=== PATIENT | male | born 1955 | race Caucasian/White ===

== ENCOUNTER 2024-07-08 12:57 | Day surgery (SDC) | payer MEDICARE, MEDICAID ==
[2024-06-29 10:42] LABS: BASOPHILS # (AUTO) 0.1 X10'3 (0-0.2); BASOPHILS % (AUTO) 1.2 % (0-1); EOSINOPHILS # (AUTO) 0.3 X10'3 (0-0.9); EOSINOPHILS % (AUTO) 3.2 % (0-6); LYMPHOCYTES # (AUTO) 1.3 X10'3 (1.1-4.8); LYMPHOCYTES % (AUTO) 16.8 % (21-51); MEAN CORPUSCULAR HEMOGLOBIN 22.7 PG (27.0-31.0); MEAN CORPUSCULAR HGB CONC 31.9 g/dL (33.0-36.5); MEAN CORPUSCULAR VOLUME 71.1 FL (78-98); MEAN PLATELET VOLUME 6.6 FL (7.4-10.4); MONOCYTES # (AUTO) 0.8 X10'3 (0-0.9); MONOCYTES % (AUTO) 10.6 % (2-12); NEUTROPHILS # (AUTO) 5.4 X10'3 (1.8-7.7); NEUTROPHILS % (AUTO) 68.2 % (42-75); PRE OP HEMATOCRIT 35.2 % (42.0-52.0); PRE OP HEMOGLOBIN 11.2 g/dL (14.0-17.9); PRE OP PLATELET COUNT 335 X10'3 (140-440); PRE OP WHITE BLOOD COUNT 7.9 10'3 (4.8-10.8); RED BLOOD COUNT 4.95 X10'6 (4.70-6.10); RED CELL DISTRIBUTION WIDTH 17.6 % (11.5-14.5)
[2024-06-29 10:57] LABS: ALBUMIN 3.4 G/DL (3.4-5.0); ALKALINE PHOSPHATASE 95 IU/L (46-116); BLOOD UREA NITROGEN 20 MG/DL (7-18); BUN/CREATININE RATIO 16.8 (10.0-20.0); CALCIUM 8.3 MG/DL (8.5-10.1); CHLORIDE 107 MMOL/L (99-107); CREATININE 1.19 MG/DL (0.60-1.10); PRE OP ALT 19 U/L (30-65); PRE OP ANION GAP 6 (8-16); PRE OP AST 13 U/L (10-37); PRE OP BILIRUB, TOTAL 0.3 MG/DL (0.0-1.0); PRE OP GLUCOSE 109 MG/DL (70-104); PRE OP POTASSIUM 4.2 MMOL/L (3.4-5.1); PRE OP SODIUM 142 MMOL/L (135-145); TOTAL CARBON DIOXIDE 29.4 MMOL/L (24-32); TOTAL PROTEIN 6.8 G/DL (6.4-8.2); eGFR 61 ML/MIN
[~2024-07-08] VITALS: Ht 175.3 cm; Wt 87.5 kg
[2024-07-08] VITALS (13 sets, daily range): BP systolic 90–134; BP diastolic 51–81; PULSE 77–104; RESP 10–16; TEMP 97.4; O2SAT 93–98
[2024-07-08] MEDS: ceFAZolin 2gm in dextrose, iso 50 ML IV ONE (05:30)
[~2024-07-08 12:57] MED LIST: AMLO-379 PO; DOCUMENT DATE & TIME OF BETA-BLOCKER PO ONE; METO-395 PO; OMEP20CA4 PO; TAMS-55 PO
[2024-07-08] MEDS: famotidine 20mg tablet PO ONE (13:29)
[2024-07-08] MEDS: ringers solution, lacted 1,000 ML IV SCH (13:29)
--- NOTE | 2024-07-08 13:34 | ELECTROCARDIOGRAPH REPORT ---
[facility] Test Date: 2024-07-08 Test Time: 13:30:42 Pat Name: ES SARGENT Department: [facility] Patient ID: [id number] Room: Gender: M Link Cutter: ANABEL : 1955 Requested By: EDIE AHRE Order Number: [id number] Reading MD: Dr. PABLITO Brewer Measurements Intervals [place] Rate: 91 P: 37 AK: 151 QRS: 13 QRSD: 108 T: 56 QT: 376 QTc: 463 Interpretive Statements Sinus rhythm Atrial premature complex RSR' in V1 or V2, right VCD or RVH Electronically Signed On 07-11-2024 15:05:[address] PABLITO Brewer Please click the below link to view image of tracing.
[2024-07-08] MEDS ORDERED: morphine 4 MG/ML inj SYRINge IV PRN (14:25)
[2024-07-08] MEDS ORDERED: ringers solution, lacted 1,000 ML IV SCH (14:25)
[2024-07-08] MEDS ORDERED: morphine 2 MG/ML inj. syringe IV PRN (14:25)
[2024-07-08] MEDS ORDERED: hydrALAZINE 20mg/ml inj. IV PRN (14:25)
[2024-07-08] MEDS ORDERED: HYDROmorphone/PF 0.2 MG/ML SYRINGE IV PRN ×2 (14:25)
[2024-07-08] MEDS ORDERED: labetalol 20mg/4ml (5mg/ml) syringe IV PRN (14:25)
[2024-07-08] MEDS ORDERED: propofol inj 20 ML IV ONE (14:29)
[2024-07-08] MEDS ORDERED: midazolam 1 mg/ML 2ml injection ONE (14:29)
[2024-07-08] MEDS ORDERED: sevoflurane 250ml liquid IH ONE (14:29)
[2024-07-08] MEDS ORDERED: fentaNYL/PF 50MCG/1 ML 2ML syringe ONE (14:29)
[2024-07-08] MEDS ORDERED: dexamethasone sod phosphate 4mg/ml inj. ONE (14:45)
[2024-07-08] MEDS ORDERED: ondansetron/PF 4mg/2ml inj ONE (15:18)
--- NOTE | 2024-07-08 15:23 | OPERATIVE REPORT ---
Operative Report Providers to ~ Date of Procedure: July 08, 2024 Pre-Operative Diagnosis: Benign prostatic hypertrophy, bladder diverticula, urinary retention Post-Operative Diagnosis SAME as PRE-Op Procedure Performed Trans urethral resection of the prostate, bladder diverticula fulguration. Surgeon: Alin Hare MD Engraver Signature None. Anesthesiologist: Gabriel Villanueva Type of Anesthesia: General Findings: Endoscopic findings: The patient demonstrated enlarged lateral lobes and a significantly elevated median bar with circumferential intravesical prostatic protrusion. His bladder had moderate trabeculations and several large diverticula the largest being at the posterior bladder wall just left of midline. The largest diverticula was completely fulgurated in order to reduce its capacity. Obstructive prostate tissue was resected circumferentially taking care to spare bladder neck fibers and the external urinary sphincter. The prostate capsule was never encountered or perforated. Complications None. Estimated Blood Loss: Minimal. Specimen Removed: Prostate chips. Description of Procedure: The patient was under the effects of general anesthesia and in dorsal lithotomy with his genitals prepped and draped in sterile fashion. We entered the urethra with a 26 Chadian resectoscope and observed the above- mentioned prostatic anatomy. Obstructive tissue was resected circumferentially taking care to spare the bladder neck and external urinary sphincter. The prostate capsule was never encountered or perforated. Once sufficient patency of the prostate fossa was observed visually point electrocautery was performed until hemostasis was observed. We then evacuated prostate chips and fulgurated the largest diverticulum in the posterior bladder wall. This facilitated evacuation of prostate chips and also reduce the size of the diverticulum. We then removed our scope and placed a 22 Chadian hematuria catheter with 30 mL instilled into the retaining balloon into the bladder. Crystal clear drainage was observed through the catheter. This completed the procedure. ALIN HARE MD July 08, 2024 15:23
[2024-07-08] MEDS: ondansetron/PF 4mg/2ml inj IV PRN (16:05)
[2024-07-08] MEDS: proCHLORperazine 10 MG/2 ml inj IV PRN (16:31)
== END 2024-07-08 17:28 | disposition home or self-care (01) ==
LOC: PAS 12:57
PROVIDERS: ATTEND Urology
DX: N40.1 Benign prostatic hyperplasia with lower urinary tract symptoms (principal); N32.3 Diverticulum of bladder; R33.8 Other retention of urine; I10 Essential (primary) hypertension; F32.A Depression, unspecified; E11.9 Type 2 diabetes mellitus without complications; Z90.49 Acquired absence of other specified parts of digestive tract; C18.9 Malignant neoplasm of colon, unspecified; Z79.899 Other long term (current) drug therapy; Z98.890 Other specified postprocedural states; Z86.2 Personal history of diseases of the blood and blood-forming organs and certain disorders involving the immune mechanism
CPT/HCPCS: 36415; 52214; 52601; 80053; 82948; 85025; 93005; A4355; A4618; A5200; J0690; J0780; J1100; J2250; J2405; J2704; J3010; J7030; J7120; Z7506; Z7512; Z7610; 88305

== ENCOUNTER 2024-08-18 08:55 | Inpatient (IN) | payer MEDICARE, MEDICAID ==
[2024-08-17 15:34] LABS: BASOPHILS # (AUTO) 0.1 X10'3 (0-0.2); BASOPHILS % (AUTO) 0.9 % (0-1); EOSINOPHILS # (AUTO) 0.2 X10'3 (0-0.9); EOSINOPHILS % (AUTO) 1.5 % (0-6); LYMPHOCYTES % (AUTO) 10.1 % (21-51); MEAN CORPUSCULAR HEMOGLOBIN 22.3 PG (27.0-31.0); MEAN CORPUSCULAR HGB CONC 31.2 g/dL (33.0-36.5); MEAN CORPUSCULAR VOLUME 71.6 FL (78-98); MEAN PLATELET VOLUME 6.7 FL (7.4-10.4); MONOCYTES % (AUTO) 9.9 % (2-12); NEUTROPHILS # (AUTO) 7.7 X10'3 (1.8-7.7); NEUTROPHILS % (AUTO) 77.6 % (42-75); PRE OP HEMATOCRIT 38.3 % (42.0-52.0); PRE OP HEMOGLOBIN 11.9 g/dL (14.0-17.9); PRE OP PLATELET COUNT 382 X10'3 (140-440); RED BLOOD COUNT 5.35 X10'6 (4.70-6.10); RED CELL DISTRIBUTION WIDTH 22.5 % (11.5-14.5)
[2024-08-17 16:18] LABS: ALBUMIN 3.4 G/DL (3.4-5.0); ALBUMIN/GLOBULIN RATIO 0.9 (1.1-1.5); ALKALINE PHOSPHATASE 101 IU/L (46-116); BLOOD UREA NITROGEN 18 MG/DL (7-18); BUN/CREATININE RATIO 12.9 (10.0-20.0); CHLORIDE 104 MMOL/L (99-107); CREATININE 1.39 MG/DL (0.60-1.10); PRE OP ALT 22 U/L (30-65); PRE OP ANION GAP 7 (8-16); PRE OP AST 17 U/L (10-37); PRE OP BILIRUB, TOTAL 0.8 MG/DL (0.0-1.0); PRE OP GLUCOSE 114 MG/DL (70-104); PRE OP POTASSIUM 3.8 MMOL/L (3.4-5.1); PRE OP SODIUM 140 MMOL/L (135-145); TOTAL CARBON DIOXIDE 28.9 MMOL/L (24-32); TOTAL PROTEIN 7.2 G/DL (6.4-8.2); eGFR 51 ML/MIN
[2024-08-17 18:03] LABS: ANISOCYTOSIS 3+; MICROCYTOSIS 1+; PLATELET ESTIMATE NORMAL
[2024-08-17 18:04] LABS: BURR CELLS FEW; ELLIPTOCYTES FEW; POLYCHROMASIA FEW; SCHISTOCYTES FEW
[~2024-08-18] VITALS: Ht 175.3 cm; Wt 86.0 kg
[2024-08-18] VITALS (31 sets, daily range): BP systolic 118–155; BP diastolic 50–91; PULSE 63–121; RESP 11–25; TEMP 97.4–98.7; O2SAT 88–97
[2024-08-18] MEDS: ringers solution, lacted 1,000 ML IV SCH ×2 (05:30→11:45)
[2024-08-18] MEDS: ceFAZolin 2gm/dext,iso 50mL 50 ML IV ONE (06:14)
[2024-08-18] MEDS: famotidine 20mg tablet PO ONE (06:14)
[2024-08-18] MEDS: DOCUMENT DATE & TIME OF BETA-BLOCKER PO ONE (06:14)
[~2024-08-18 08:55] MED LIST changes: -AMLO-379 PO; +ATOR-2 PO; -DOCUMENT DATE & TIME OF BETA-BLOCKER PO ONE; +FERR325T29 PO; +FLUT16SP2 BOTHNARES
[2024-08-18] MEDS ORDERED: LIDOcaine 1% W/epiNEPHrine 1:100,000 20ml vial ONE (10:41)
[2024-08-18] MEDS ORDERED: BUPIVAcaine 2.5mg/ml inj 50ml vial (contains preservative) ONE (10:42)
[2024-08-18] MEDS ORDERED: LIDOcaine 1% (10mg/ml)w/preservative inj. 20ml MDV ONE (10:42)
[2024-08-18] MEDS ORDERED: INDOCYANINE GREEN 25 MG/10 ML VIAL IV ONE (11:17)
--- NOTE | 2024-08-18 11:27 | HISTORY AND PHYSICAL ---
History & Physical Providers to CC CC: LOUIS RODRÍGUEZ MD ~ History of Present Illness Reason for Admit\Complaint: Colon cancer History of Present Illness Interval history and physical exam Patient is here today for elective right hemicolectomy Anemia led to diagnostic colonoscopy that revealed a circumferential mass involving the ascending colon biopsy positive for adenocarcinoma He is scheduled for robotic assisted, laparoscopic possible open right hemicolectomy He denies any change in his past medical history since he was seen in the office (please see previous history and physical exam for all pertinent details) Allergies: Coded Allergies: No Known Allergies (Unverified , 07/20/15) Home Medications Home Medications Active Reported Flonase (Fluticasone Propionate) 16 Gm [place].susp 2 Sprays BOTHNARES DAILY Ferrous Sulfate 325 Mg (65 Mg Iron) Tablet 1 Tab PO DAILY Atorvastatin Calcium 80 Mg Tablet 1 Tab PO DAILY Flomax* (Tamsulosin HCl) 0.4 Mg Cap.sr.24h 0.4 Mg PO DAILY Metoprolol Succinate 25 Mg Tab.sr.24h 1 Tab PO DAILY Prilosec (Omeprazole) 20 Mg Capsule.dr 40 Mg PO DAILY TAKE 1 CAPSULE BY MOUTH DAILY. Exam Vitals: Vital Signs Date Time Temp Pulse Resp B/P (MAP) Pulse Ox O2 Delivery O2 Flow Rate FiO2 08/18/24 10:06 87 16 96 08/18/24 09:18 Room Air General: 69-year-old male in no acute distress Chest: Lungs clear to auscultation bilaterally Cardiovascular: Regular rate and rhythm without murmurs Abdomen: Soft and nondistended Diagnostic Data Last Recorded Lab Results: 08/17/24 1525 08/17/24 1525 Problems: (1) Colon cancer Assessment & Plan: The risks, benefits, and alternatives to a robotic assisted, laparoscopic possible open right hemicolectomy were discussed with the patient. Risks include, but are not limited to, bleeding, infection, injury to intra- abdominal structures, leakage from the intestine and the need for additional surgery. Patient verbalized understanding and wishes to proceed with surgery. We will do so today as scheduled Problem Qualifiers (1) Colon cancer: Colon location: ascending Qualified Codes: C18.2 - Malignant neoplasm of ascending colon LOUIS RODRÍGUEZ MD Aug 18, 2024 11:27
[2024-08-18] MEDS ORDERED: midazolam 1 mg/ML 2ml injection ONE (11:36)
[2024-08-18] MEDS ORDERED: fentaNYL /PF 50mcg/ml 5ml ampule ONE (11:36)
[2024-08-18] MEDS ORDERED: hydrALAZINE 20mg/ml inj. IV PRN (11:45)
[2024-08-18] MEDS ORDERED: meperidine/PF 25mg/ml syringe IV PRN (11:45)
[2024-08-18] MEDS ORDERED: labetalol 20mg/4ml (5mg/ml) syringe IV PRN (11:45)
[2024-08-18] MEDS ORDERED: proCHLORperazine 10 MG/2 ml inj IV PRN (11:45)
[2024-08-18] MEDS ORDERED: morphine 4 MG/ML inj SYRINge IV PRN (11:45)
[2024-08-18] MEDS ORDERED: HYDROmorphone/PF 0.2 MG/ML SYRINGE IV PRN ×2 (11:45)
[2024-08-18] MEDS ORDERED: morphine 2 MG/ML inj. syringe IV PRN (11:45)
[2024-08-18] MEDS ORDERED: sevoflurane 250ml liquid IH ONE (12:03)
[2024-08-18] MEDS ORDERED: metroNIDAZOLE-Flagyl 500mg/NS 100 ML IV ONE (12:06)
[2024-08-18] MEDS: BUPIVAcaine/PF 2.5 mg/ml (0.25%) 30ml vial IJ ONE (12:35)
[2024-08-18] MEDS ORDERED: rocuronium 10mg/ml inj IV ONE (13:18)
[2024-08-18] MEDS ORDERED: 0.9 % SODIUM CHLORIDE 10 ML VIAL ONE (13:18)
[2024-08-18] MEDS ORDERED: ePHEDrine 50MG/ML INJ. ONE (13:18)
[2024-08-18] MEDS ORDERED: LIDOcaine 2% (20mg/ml) 5ml vial ONE (13:18)
[2024-08-18] MEDS ORDERED: propofol inj 20 ML IV ONE (13:18)
[2024-08-18] MEDS ORDERED: ondansetron/PF 4mg/2ml inj ONE (13:19)
[2024-08-18] MEDS ORDERED: dexamethasone sod phosphate 4mg/ml inj. ONE (13:19)
[2024-08-18] MEDS ORDERED: BUPIVACAINE liposomal/PF 13.3 MG/ML 10mL vial IM ONE (15:14)
[2024-08-18] MEDS ORDERED: neostigmine methylsulfate 1 MG/ML 10ml vial ONE (15:33)
[2024-08-18] MEDS ORDERED: glycopyrrolate 0.2mg/ml inj ONE (15:33)
[2024-08-18] MEDS ORDERED: morphine 10mg/ml inj. ONE (15:33)
[2024-08-18] MEDS ORDERED: HYDROmorph/NS 0.2 mg/ml PCA 100 ML IV SCH (16:10)
--- NOTE | 2024-08-18 16:26 | OPERATIVE REPORT ---
Operative Report Providers to CC CC: VITO RODRÍGUEZ MD ~ Date of Procedure: Aug 18, 2024 Pre-Operative Diagnosis: colon cancer Post-Operative Diagnosis SAME as PRE-Op Procedure Performed Robotic assisted, laparoscopic extended right hemicolectomy Surgeon: Vito Rodríguez MD FACS Coconut Cooker None Anesthesiologist: Emanuel Greenfield Type of Anesthesia: General Findings: Ink tattoo at the hepatic flexure with a palpable mass in the specimen There was also what appeared to be a mass with extension into the wall of the cecum No extra colonic evidence of metastatic disease grossly apparent Good perfusion to both staple lines prior to ileocolic anastomosis confirmed with fluorescent mesenteric Wound class III Complications None Prosthetics\Implants used: None Estimated Blood Loss: 50 cc Specimen Removed: Terminal ileum, ascending colon and portion of transverse colon Description of Procedure: Patient was brought to the operating room and identified by the nursing staff and the attending physician. Patient was placed supine and general anesthesia was induced. Preoperative antibiotics were given. Beckford catheter was placed. The abdomen was prepped and draped in the standard sterile fashion. Veress needle technique was used at johnson's point in the abdomen was insufflated without incident. Abdomen was entered through the left mid abdomen with an 8.5 mm robotic trocar. Abdomen was surveyed. There were no significant adhesions. Additional robotic trocars were placed in the left suprapubic left lower abdomen and left upper quadrant under laparoscopic visualization. Patient was placed in slight reverse Trendelenburg position with the right side up. The [employer] Bert robotic arm was docked to the patient and instruments were guided into the abdomen under laparoscopic visualization. Tattoo ink was not readily identified. The omentum had some adhesions to the ascending colon which were mobilized and the omentum was swept to the right upper quadrant. Right colon was tented up towards the anterior abdominal wall putting the right colic vessels on stretch. A window was created through the right mesocolon and vessels were circumferentially dissected and then ligated using the robotic vessel sealer. Dissection in the retroperitoneum towards the right upper quadrant ensued. The duodenal sweep was readily identified and swept towards the abdominal midline. Dissection continued until tattoo ink staining was noted in the retroperitoneum along the mesentery associated with the hepatic flexure. The mesentery was then divided up to the midportion of the transverse colon at the level of the middle colic vessels. The distal transverse colon was mobilized away from the omentum up to the hepatic flexure. Mesenteric dissection was then continued towards the terminal ileum. The cecum was noted to have what appeared to be a mass in the cecum with some extension into the wall of the colon at the level of the ileocecal junction. With the concern for a 2nd, metachronous lesion, the decision to divide the terminal ileum 10 cm proximal to the ileocecal valve was made. Mesenteric division continued towards this location on the small bowel. A window was created through the mesentery and the small bowel was divided using a robotic linear cutting stapler. Division was about 10 cm proximal to the ileocecal valve. The ascending colon was then mobilized toward the midline taking the white line of Toldt up to and around the hepatic flexure. Ink was noted in the wall of the colon at and around the hepatic flexure. Transverse colon was mobilized up to the level of the middle colic vessels and divided here, completing the extended right hemicolectomy. Specimens swept to the lower abdomen and the neoterminal ileum was laid adjacent to the mid transverse colon. Stay sutures were placed. Enterotomy and colotomy were created and a 60 mm stapled ileocolic anastomosis was created. The enterotomy and colotomy were closed as a common channel with a running absorbable, 3/0 V lock suture. That suture line was then reinforced with a running Lembert suture burying the original suture line. Omentum was then swept over the ileocolic anastomosis. Instruments were then removed and the de Bert robotic arm was undocked from the patient. Specimen was secured with a grasper. The 12 mm port site was removed and its fascia closed percutaneously with 0 Vicryl suture. A periumbilical incision was made after remaining ports were removed and the specimen delivered through a George wound protector. Fascia was then closed at that site with running PDS suture. Wound was irrigated and all skin sites closed with skin vale. Dressings were applied. At this point, it was noted that there was no urine in the Beckford catheter. Was brought to my attention that there was some difficulty placing the Beckford catheter at the beginning of the case, however, was not brought to my attention until the case and finished. That Beckford catheter was removed. A coude catheter was then readily advanced into the bladder and good urine return was obtained. Patient was then awakened and taken to the postanesthesia care unit in stable condition. Counts repoted as correct: Yes VITO RODRÍGUEZ MD Aug 18, 2024 16:26
[2024-08-18 17:00] LABS: ISTAT CREATININE 1.2 mg/dL (0.8-1.3); ISTAT HGB 11.9 g/dl (14.0-17.9); ISTAT IONIZED CALCIUM 1.16 mmol/L (1.03-1.32); ISTAT K 4.3 mmol/L (3.5-5.1); POC BUN/CREATININE RATIO 14.2 (5.4-32.0)
[2024-08-18 17:05] LABS: ABG BASE EXCESS -3.4 mmol/L (-2.0-3.0); ABG HCO3 21.6 mmol/L (21.0-28.0); ABG OXYGEN SATURATION 89.1 % (94.0-98.0); ABG PCO2 (T) 38.6 mmHg (35.0-48.0); ABG PH (T) 7.365 (7.350-7.450); ABG PO2 (T) 60.8 mmHg (83.0-108.0); ALLEN'S TEST POSITIVE; FCOHb 1.6 % (0.5-1.5); FHHb 10.7 % (0.0-5.0); FLOW 10 L/min; FMetHb 0.3 % (0.0-1.5); FO2Hb 87.4 % (94.0-98.0); MODE Simple Mask; PATIENT TEMPERATURE 36.7; TOTAL HEMOGLOBIN 11.2 G/dl (13.5-17.5)
[2024-08-18] MEDS: ipratropium/albuterol 3ml nebule IH ONE (17:41)
[2024-08-18] MEDS: furosemide 20 MG/2 ML vial IV ONE ×2 (17:59→19:22)
[2024-08-18] MEDS: HYDROmorph/NS 0.2 mg/ml PCA 100 ML IV SCH (19:00)
[2024-08-18] MEDS: ondansetron/PF 4mg/2ml inj IV PRN (19:06)
[2024-08-18] MEDS: acetaminophen 1,000mg/100ml IV 100 ML IV PRN (19:07)
[2024-08-18] MEDS: normal saline 1000ml 1,000 ML IV SCH (20:30)
[2024-08-18] MEDS ORDERED: albuterol 2.5 MG/3 ML nebule NEB PRN (22:10)
[2024-08-19] VITALS (10 sets, daily range): BP systolic 95–139; BP diastolic 53–77; PULSE 79–91; RESP 9–20; TEMP 96.7–98.3; O2SAT 93–98
--- NOTE | 2024-08-19 02:42 | CONSULTATION REPORT - RESIDENT ---
Consult Providers to CC Resident Creating Document: KESHAWN LAKHANI RES History of Present Illness Reason for Admit\Complaint: Colon cancer History of Present Illness 69 years old male with history of hypertension, anemia, colon cancer admitted to the hospital for elective hemicolectomy. Anemia led to diagnostic colonoscopy that revealed a circumferential mass involving the ascending colon biopsy positive for adenocarcinoma He underwent robotic assisted, laparoscopic extended right hemicolectomy by Dr. Roa on 08/18/24. After surgery he had some respiratory distress who received breathing treatment and feeling better now. I saw patient couple hours after surgery, abdominal pain is controlled by hydromorphone. Denied cough shortness of breaths or any other new symptoms. Allergies: Coded Allergies: No Known Allergies (Unverified , 07/20/15) Home Medications Home Medications Active Reported Flonase (Fluticasone Propionate) 16 Gm [place].susp 2 Sprays BOTHNARES DAILY Ferrous Sulfate 325 Mg (65 Mg Iron) Tablet 1 Tab PO DAILY Atorvastatin Calcium 80 Mg Tablet 1 Tab PO DAILY Flomax* (Tamsulosin HCl) 0.4 Mg Cap.sr.24h 0.4 Mg PO DAILY Metoprolol Succinate 25 Mg Tab.sr.24h 1 Tab PO DAILY Prilosec (Omeprazole) 20 Mg Capsule.dr 40 Mg PO DAILY TAKE 1 CAPSULE BY MOUTH DAILY. Past Medical History Past Medical History Colon cancer Hypertension Type 2 diabetes mellitus Past Surgical History Surgical History Comment Trans urethral resection of the prostate, bladder diverticula fulguration in 07/08/24 Family History Family History: FHx: diabetes mellitus MOTHER FHx: heart disease FATHER Past Social History Social History Comment Never smoked, no any illicit drug Denied drinking alcohol Exam Vitals: Vital Signs Date Time Temp Pulse Resp B/P (MAP) Pulse Ox O2 Delivery O2 Flow Rate FiO2 08/19/24 01:00 12 08/18/24 22:00 97.4 63 126/80 (95) 96 Room Air 5.0 08/18/24 17:42 99 General: General: Awake and Alert, no acute distress. HEENT: Conjunctiva pink, Sclera clear, Mucus Membranes moist. Neck: Supple without masses and tenderness. Resp: Lungs clear to auscultation bilaterally. Heart: Regular Rate and rhythm, normal S1 and S2 Abdomen: Soft, surgical site covered by dressing, mild tenderness, hypoactive BS Extremities: No cyanosis,clubbing or edema. Skin: Warm and Dry. Neurological: Speech is clear, alert, and oriented x 4, no gross neurological deficits Diagnostic Data Last Recorded Lab Results: 08/17/24 1525 08/17/24 1525 Additional Plan 69 years old male with history of hypertension, diabetes mellitus, colon cancer admitted to the hospital for elective hemicolectomy Colon cancer Adenocarcinoma He underwent robotic assisted, laparoscopic extended right hemicolectomy by Dr. Roa on 08/18/[address] Roa Respiratory distress in recovery room Patient received respiratory treatment and improved. We will continue albuterol, incentive spirometer Diabetes mellitus Hemoglobin A1c 6.5 hyperglycemia hypoglycemia protocol Hypertension Continue home medication metoprolol succinate 25 Code Status: full DVT prophylaxis: Analgesia/sedation: Hydromorphone Line/tube: Peripheral GI prophylaxis: Protonix Nutrition: Liquid PT: Yes Prognosis: Guarded Disposition: Continue monitoring patient in PCU floor Keshawn Lakhani MD Internal Medicine Resident Patient seen and examined with HIPAA compliant audio visual aid. Patient was discussed with the resident, agree with the plan as above with no changes. Carmelina Saldana MD Tele critical care Date of Service: Aug 19, 2024 Billing Provider: CARMELINA SALDANA MD, ELA[place], RES Aug 19, 2024 02:42 CARMELINA SALDANA MD Aug 20, 2024 18:40
[2024-08-19] MEDS ORDERED: DEXTROSE 15 GM of carb/4 tabs (each vial/BOTTLE has 4 tablets) PO PRN ×2 (02:55)
[2024-08-19] MEDS ORDERED: glucagon, human recombinant 1mg kit SUBCUT PRN (02:55)
[2024-08-19] MEDS ORDERED: dextrose 50%-water 50ml dispensing syringe IV PRN ×2 (02:55)
[2024-08-19] MEDS: pantoprazole 40mg Tablet.DR PO SCH (06:29)
[2024-08-19 06:58] LABS: BASOPHILS % (AUTO) 0.1 % (0-1); EOSINOPHILS % (AUTO) 0 % (0-6); HEMATOCRIT 33.3 % (42.0-52.0); HEMOGLOBIN 10.6 g/dl (14.0-17.9); LYMPHOCYTES # (AUTO) 0.5 X10'3 (1.1-4.8); LYMPHOCYTES % (AUTO) 4.4 % (21-51); MEAN CORPUSCULAR HEMOGLOBIN 22.9 PG (27.0-31.0); MEAN CORPUSCULAR HGB CONC 31.7 g/dL (33.0-36.5); MEAN CORPUSCULAR VOLUME 72.2 FL (78-98); MEAN PLATELET VOLUME 6.9 FL (7.4-10.4); MONOCYTES # (AUTO) 1.1 X10'3 (0-0.9); NEUTROPHILS # (AUTO) 9.1 X10'3 (1.8-7.7); NEUTROPHILS % (AUTO) 85.5 % (42-75); PLATELET COUNT 359 X10'3 (140-440); RED BLOOD COUNT 4.62 X10'6 (4.70-6.10); RED CELL DISTRIBUTION WIDTH 22.8 % (11.5-14.5); WHITE BLOOD COUNT 10.6 X10'3 (4.5-11.0)
[2024-08-19] MEDS: INSULIN LISPRO 100 UNIT/ML INSULN.PEN MULTI-DOSE SQ SCH (07:00)
[2024-08-19 07:17] LABS: ALBUMIN 2.9 G/DL (3.4-5.0); ANION GAP 9 (8-16); BLOOD UREA NITROGEN 16 MG/DL (7-18); BUN/CREATININE RATIO 13.6 (10.0-20.0); CALCIUM 8.4 MG/DL (8.5-10.1); CHLORIDE 102 MMOL/L (99-107); CREATININE 1.18 MG/DL (0.60-1.10); GLUCOSE 160 MG/DL (70-104); POTASSIUM 4.1 MMOL/L (3.5-5.1); SODIUM 140 MMOL/L (135-145); TOTAL CARBON DIOXIDE 29.2 MMOL/L (24-32); eCRCL 60 ML/MIN; eGFR 61 ML/MIN
[2024-08-19] MEDS: fluticasone nasal spray 16GM bottle NS SCH (08:00)
[2024-08-19] MEDS: metoprolol succinate 25mg (24-HOUR) SR. Tablet PO SCH (08:26)
[2024-08-19] MEDS: tamsulosin 0.4mg capsule PO SCH (08:26)
[2024-08-19] MEDS: mag hydrox/Alum hydrox/simeth 30ml oral suspension PO ONE (11:22)
--- NOTE | 2024-08-19 11:57 | PROGRESS NOTE ---
Daily Progress Note Providers to CC ~ Antibiotic Timeout Antibiotic Ordered?: No Subjective No acute events overnight. Patient examined at bedside. No new complaints. Patient denies chest pain, sob, palpitations, abdominal pain, n/v/d. Patient is s/p elective right hemicolectomy 08/18 for colon cancer. Vss, labs unremarkable. Objective Vital Signs Date Time Temp Pulse Resp B/P (MAP) Pulse Ox O2 Delivery O2 Flow Rate FiO2 08/19/24 11:37 85 16 93 Nasal Cannula* 5 40 08/19/24 11:00 98.0 119/65 (83) Result Diagram: 08/19/24 0607 08/19/24 0607 Physical Exam General: Generalized weakness, A&Ox 3, NAD HEENT: Normocephalic, PERRLA Neck: Supple, trachea midline, no JVD Chest: Clear to auscultation bilaterally Cardiovascular: RRR, S1&S2 GI: Mild tenderness with palpation; negative rebound tenderness Extremities: No cyanosis/clubbing/or edema CONTINUITY WRITER: CN II-XII intact, no focal deficits Musculoskeletal: No paraspinal muscle tenderness, no muscle spasm Skin: Laparoscopic incisions in umbilical left upper and left lower quadrant abdomen without s/s infection Problem\Assessment\Plan 69 years old male with history of hypertension, diabetes mellitus, colon cancer admitted to the hospital for elective hemicolectomy Assessment Colon cancer, s/p robotic laparoscopic extended right hemicolectomy by Dr. Roa on 08/18/24 NIDDM HTN Microcytic anemia -A1c 6.5% Plan -08/19: supportive care, hyper/hypoglycemic protocol, continue home metoprolol succ, follow iron studies Code Status: Full Code DVT/VTE prophylaxis: SCDs Date of Service: Aug 19, 2024 Billing Provider: FREDERICK KING Common Visit Codes: [id number] INP/OBS CARE(HIGH) FREDERICK KING Aug 19, 2024 11:57
[2024-08-19 13:30] LABS: FERRITIN 28 NG/ML (26-388)
[2024-08-19 13:51] LABS: % IRON SATURATION 6 % (11-46); IRON 15 UG/DL (53-167); TOTAL IRON BINDING CAPACITY 244 UG/DL (259-388)
[2024-08-19] MEDS: ondansetron/PF 4mg/2ml inj IV PRN (15:37)
--- NOTE | 2024-08-19 18:52 | PROGRESS NOTE ---
Progress Note Dictate Providers to CC ~ Progress Note: Subsequent surgical care on a 69-year-old gentleman who is postoperative day 1. Status post robotic assisted, laparoscopic extended right hemicolectomy No complaints No flatus as of yet Pathology pending Continue clear liquid diet until passing flatus No need for antibiotics Continue PEDIATRIC OPHTHALMOLOGIST until diet advanced Continue Beckford catheter until at least postoperative day 3. As it was a very difficult Beckford catheter placement Appreciate assistance in the medical management of this patient. Antibiotic Ordered?: No Objective Vitals Vital Signs Date Time Temp Pulse Resp B/P (MAP) Pulse Ox O2 Delivery O2 Flow Rate FiO2 08/19/24 17:00 18 08/19/24 15:00 98.3 89 105/62 (76) 96 Nasal Cannula 5.0 08/19/24 11:37 40 Lab Results: 08/19/24 0607 08/19/24 0607 Problem\Assessment\Plan Problems/Diagnosis: (1) Colon cancer Problem Qualifiers (1) Colon cancer: Qualified Codes: C18.2 - Malignant neoplasm of ascending colon LOUIS RODRÍGUEZ MD Aug 19, 2024 18:52
[2024-08-19] MEDS: PCA WASTE DOCUMENTATION 1 MG ML MC SCH (21:21)
[2024-08-20] VITALS (8 sets, daily range): BP systolic 93–139; BP diastolic 54–71; PULSE 74–91; RESP 10–17; TEMP 97.3–98.2; O2SAT 92–98
[2024-08-20 06:07] LABS: BASOPHILS % (AUTO) 0.3 % (0-1); EOSINOPHILS # (AUTO) 0.1 X10'3 (0-0.9); EOSINOPHILS % (AUTO) 0.7 % (0-6); HEMATOCRIT 31.2 % (42.0-52.0); HEMOGLOBIN 9.9 g/dl (14.0-17.9); LYMPHOCYTES # (AUTO) 1.3 X10'3 (1.1-4.8); LYMPHOCYTES % (AUTO) 14.2 % (21-51); MEAN CORPUSCULAR HEMOGLOBIN 23.1 PG (27.0-31.0); MEAN CORPUSCULAR HGB CONC 31.8 g/dL (33.0-36.5); MEAN CORPUSCULAR VOLUME 72.6 FL (78-98); MEAN PLATELET VOLUME 6.8 FL (7.4-10.4); MONOCYTES # (AUTO) 0.9 X10'3 (0-0.9); MONOCYTES % (AUTO) 9.1 % (2-12); NEUTROPHILS # (AUTO) 7.1 X10'3 (1.8-7.7); NEUTROPHILS % (AUTO) 75.7 % (42-75); PLATELET COUNT 314 X10'3 (140-440); WHITE BLOOD COUNT 9.4 X10'3 (4.5-11.0)
[2024-08-20 06:28] LABS: ALBUMIN 2.6 G/DL (3.4-5.0); ANION GAP 4 (8-16); BLOOD UREA NITROGEN 12 MG/DL (7-18); BUN/CREATININE RATIO 10.4 (10.0-20.0); CALCIUM 7.7 MG/DL (8.5-10.1); CHLORIDE 105 MMOL/L (99-107); CREATININE 1.15 MG/DL (0.60-1.10); GLUCOSE 98 MG/DL (70-104); SODIUM 141 MMOL/L (135-145); TOTAL CARBON DIOXIDE 31.8 MMOL/L (24-32); eCRCL 61 ML/MIN; eGFR 63 ML/MIN
--- NOTE | 2024-08-20 10:24 | PROGRESS NOTE ---
Daily Progress Note Providers to CC ~ Antibiotic Timeout Antibiotic Ordered?: No Subjective No acute events overnight. Patient examined at bedside. No new complaints, not in acute distress. Patient denies chest pain, sob, palpitations, abdominal pain, n/v/d. Vss, labs unremarkable. No flatus yet. Continued on clear liquid diet until passing flatus. Objective Vital Signs Date Time Temp Pulse Resp B/P (MAP) Pulse Ox O2 Delivery O2 Flow Rate FiO2 08/20/24 09:00 12 08/20/24 07:46 88 96 Nasal Cannula* 4 36 08/20/24 02:00 97.3 107/59 (75) Result Diagram: 08/20/24 0531 08/20/24 0531 Physical Exam General: Generalized weakness, A&Ox 3, NAD HEENT: Normocephalic, PERRLA Neck: Supple, trachea midline, no JVD Chest: Clear to auscultation bilaterally Cardiovascular: RRR, S1&S2 GI: Mild tenderness with palpation; negative rebound tenderness Extremities: No cyanosis/clubbing/or edema WARE CLEANER: CN II-XII intact, no focal deficits Musculoskeletal: No paraspinal muscle tenderness, no muscle spasm Skin: Laparoscopic incisions in umbilical left upper and left lower quadrant abdomen without s/s infection Problem\Assessment\Plan 69 years old male with history of hypertension, diabetes mellitus, colon cancer admitted to the hospital for elective hemicolectomy Assessment Colon cancer, s/p robotic laparoscopic extended right hemicolectomy by Dr. Roa on 08/18/24 NIDDM HTN Microcytic anemia LUTHER s/p TURP -A1c 6.5%, LUTHER Plan -08/19: supportive care, hyper/hypoglycemic protocol, continue home metoprolol succ, follow iron studies -08/20: no flatus yet, continue clear liquid diet until passing flatus Code Status: Full Code DVT/VTE prophylaxis: SCDs Date of Service: Aug 20, 2024 Billing Provider: FREDERICK KING Common Visit Codes: [id number] INP/OBS CARE(HIGH) FREDERICK KING Aug 20, 2024 10:24
--- NOTE | 2024-08-20 18:47 | RADIOLOGY REPORT ---
EXAM: DI CHEST,SINGLE VIEW TECHNIQUE: Single frontal chest radiograph CLINICAL HISTORY: hypoxic respiratory failure COMPARISON: None Findings/Impression: Frontal chest radiograph demonstrates no acute osseous or superficial soft tissue abnormalities. The trachea is midline. The cardiac silhouette and mediastinum are within normal limits. Low lung volumes bronchovascular crowding and bibasilar atelectasis. Trace bilateral pleural effusion s not excluded. No pneumothorax.
--- NOTE | 2024-08-20 19:29 | PROGRESS NOTE ---
Progress Note Dictate Providers to CC ~ Progress Note: Subsequent surgical care on a 69-year-old gentleman who is postoperative day 2. Status post robotic assisted, laparoscopic right hemicolectomy for colorectal cancer Pathology pending Tolerating clear liquid diet but still no flatus Has an appetite Abdomen is soft and nondistended Trial of full liquid diet Home when passing flatus/return of bowel function Antibiotic Ordered?: No Objective Vitals Vital Signs Date Time Temp Pulse Resp B/P (MAP) Pulse Ox O2 Delivery O2 Flow Rate FiO2 08/20/24 15:00 16 08/20/24 15:00 97.5 74 126/62 (83) 96 Nasal Cannula 3.0 08/20/24 13:03 36 Lab Results: 08/20/24 0531 08/20/24 0531 Problem\Assessment\Plan Problems/Diagnosis: (1) Colon cancer Problem Qualifiers (1) Colon cancer: Qualified Codes: C18.2 - Malignant neoplasm of ascending colon LOUIS RODRÍGUEZ MD Aug 20, 2024 19:29
[2024-08-20] MEDS: oxyCODONE/APAP 5-325mg tablet PO PRN (22:50)
[2024-08-21] VITALS (9 sets, daily range): BP systolic 104–118; BP diastolic 61–74; PULSE 81–94; RESP 13–23; TEMP 97.3–97.9; O2SAT 90–96
[2024-08-21 06:41] LABS: BASOPHILS # (AUTO) 0.1 X10'3 (0-0.2); BASOPHILS % (AUTO) 0.9 % (0-1); EOSINOPHILS # (AUTO) 0.2 X10'3 (0-0.9); EOSINOPHILS % (AUTO) 2.4 % (0-6); HEMATOCRIT 32.2 % (42.0-52.0); HEMOGLOBIN 10.1 g/dl (14.0-17.9); LYMPHOCYTES # (AUTO) 1.1 X10'3 (1.1-4.8); LYMPHOCYTES % (AUTO) 15.5 % (21-51); MEAN CORPUSCULAR HEMOGLOBIN 22.7 PG (27.0-31.0); MEAN CORPUSCULAR HGB CONC 31.4 g/dL (33.0-36.5); MEAN CORPUSCULAR VOLUME 72.2 FL (78-98); MEAN PLATELET VOLUME 6.5 FL (7.4-10.4); MONOCYTES # (AUTO) 0.6 X10'3 (0-0.9); MONOCYTES % (AUTO) 8.4 % (2-12); NEUTROPHILS # (AUTO) 5.4 X10'3 (1.8-7.7); NEUTROPHILS % (AUTO) 72.8 % (42-75); PLATELET COUNT 329 X10'3 (140-440); RED BLOOD COUNT 4.45 X10'6 (4.70-6.10); RED CELL DISTRIBUTION WIDTH 22.4 % (11.5-14.5); WHITE BLOOD COUNT 7.4 X10'3 (4.5-11.0)
[2024-08-21 06:50] LABS: ALBUMIN 2.6 G/DL (3.4-5.0); ANION GAP 9 (8-16); BLOOD UREA NITROGEN 11 MG/DL (7-18); BUN/CREATININE RATIO 10.4 (10.0-20.0); CALCIUM 8.4 MG/DL (8.5-10.1); CHLORIDE 104 MMOL/L (99-107); CREATININE 1.06 MG/DL (0.60-1.10); GLUCOSE 108 MG/DL (70-104); SODIUM 144 MMOL/L (135-145); TOTAL CARBON DIOXIDE 31.3 MMOL/L (24-32); eCRCL 67 ML/MIN; eGFR 69 ML/MIN
[2024-08-21 07:11] LABS: PLATELET ESTIMATE NORMAL
[2024-08-21 07:12] LABS: ANISOCYTOSIS 3+; ELLIPTOCYTES 1+; HYPOCHROMASIA 1+; MICROCYTOSIS 1+
[2024-08-21 07:13] LABS: BURR CELLS FEW; SCHISTOCYTES FEW
--- NOTE | 2024-08-21 10:43 | PROGRESS NOTE ---
Daily Progress Note Providers to CC ~ Antibiotic Timeout Antibiotic Ordered?: No Subjective No acute events overnight. Patient examined at bedside. No new complaints not in acute distress. Patient denies chest pain, sob, palpitations, abdominal pain, n/v/d. Vss, labs unremarkable. On clear liquid diet, no flatus/BM yet. Objective Vital Signs Date Time Temp Pulse Resp B/P (MAP) Pulse Ox O2 Delivery O2 Flow Rate FiO2 08/21/24 08:06 89 16 93 Nasal Cannula* 2 28 08/21/24 07:00 97.9 111/62 (78) Result Diagram: 08/21/2462108/21/24621 Physical Exam General: Generalized weakness, A&Ox 3, NAD HEENT: Normocephalic, PERRLA Neck: Supple, trachea midline, no JVD Chest: Clear to auscultation bilaterally Cardiovascular: RRR, S1&S2 GI: Mild tenderness with palpation; negative rebound tenderness Extremities: No cyanosis/clubbing/or edema LEHR TENDER: CN II-XII intact, no focal deficits Musculoskeletal: No paraspinal muscle tenderness, no muscle spasm Skin: Laparoscopic incisions in umbilical left upper and left lower quadrant abdomen without s/s infection Problem\Assessment\Plan 69 years old male with history of hypertension, diabetes mellitus, colon cancer admitted to the hospital for elective hemicolectomy Assessment Colon cancer, s/p robotic laparoscopic extended right hemicolectomy by Dr. Roa on 08/18/24 Acute hypoxic respiratory failure Malnutrition, mild NIDDM HTN Microcytic anemia LUTHER s/p TURP -A1c 6.5%, LUTHER, hypoxia post-op Plan -08/19: supportive care, hyper/hypoglycemic protocol, continue home metoprolol succ, follow iron studies -08/20: no flatus yet, continue clear liquid diet until passing flatus, continue supplemental oxygen, prn bronchodilators Code Status: Full Code DVT/VTE prophylaxis: SCDs Date of Service: Aug 21, 2024 Billing Provider: FREDERICK KING Common Visit Codes: [id number] INP/OBS CARE(HIGH) FREDERICK KING Aug 21, 2024 10:43
[2024-08-21] MEDS ORDERED: ipratropium/albuterol 3ml nebule NEB PRN (10:45)
[2024-08-21] MEDS ORDERED: albuterol 2.5 MG/3 ML nebule NEB PRN (10:45)
--- NOTE | 2024-08-21 17:44 | PROGRESS NOTE ---
Progress Note Dictate Providers to CC ~ Progress Note: Subsequent surgical care on a 69-year-old gentleman who is postoperative day 3 status post robotic assisted, laparoscopic extended right hemicolectomy Tolerating full liquids Pathology still pending Laboratory studies reassuring hemodynamically normal Trial of regular diet Home when passing flatus/bowel movement Dr. Gabriele Banks covering the weekend Antibiotic Ordered?: No Objective Vitals Vital Signs Date Time Temp Pulse Resp B/P (MAP) Pulse Ox O2 Delivery O2 Flow Rate FiO2 08/21/24 16:43 21 08/21/24 11:00 97.5 81 104/61 (75) 94 Nasal Cannula 2.0 08/21/24 08:06 28 Lab Results: 08/21/24 0622 08/21/24 0622 Problem\Assessment\Plan Problems/Diagnosis: (1) Colon cancer Problem Qualifiers (1) Colon cancer: Qualified Codes: C18.2 - Malignant neoplasm of ascending colon LOUIS RODRÍGUEZ MD Aug 21, 2024 17:44
[2024-08-22 02:00] VITALS: BP 115/60; PULSE 69; RESP 18; TEMP 97.7; O2SAT 95
[2024-08-22 06:19] LABS: BASOPHILS # (AUTO) 0.1 X10'3 (0-0.2); BASOPHILS % (AUTO) 1.1 % (0-1); EOSINOPHILS # (AUTO) 0.2 X10'3 (0-0.9); EOSINOPHILS % (AUTO) 3.3 % (0-6); HEMOGLOBIN 10.3 g/dl (14.0-17.9); LYMPHOCYTES # (AUTO) 1.3 X10'3 (1.1-4.8); LYMPHOCYTES % (AUTO) 18.8 % (21-51); MEAN CORPUSCULAR HEMOGLOBIN 23.1 PG (27.0-31.0); MEAN CORPUSCULAR HGB CONC 32.1 g/dL (33.0-36.5); MEAN CORPUSCULAR VOLUME 71.8 FL (78-98); MEAN PLATELET VOLUME 6.5 FL (7.4-10.4); MONOCYTES # (AUTO) 0.6 X10'3 (0-0.9); MONOCYTES % (AUTO) 8.4 % (2-12); NEUTROPHILS # (AUTO) 4.6 X10'3 (1.8-7.7); NEUTROPHILS % (AUTO) 68.4 % (42-75); PLATELET COUNT 328 X10'3 (140-440); RED BLOOD COUNT 4.45 X10'6 (4.70-6.10); RED CELL DISTRIBUTION WIDTH 22.4 % (11.5-14.5); WHITE BLOOD COUNT 6.7 X10'3 (4.5-11.0)
[2024-08-22 06:26] LABS: ALBUMIN 2.7 G/DL (3.4-5.0); ANION GAP 9 (8-16); BLOOD UREA NITROGEN 12 MG/DL (7-18); BUN/CREATININE RATIO 10.4 (10.0-20.0); CALCIUM 8.4 MG/DL (8.5-10.1); CHLORIDE 102 MMOL/L (99-107); CREATININE 1.15 MG/DL (0.60-1.10); GLUCOSE 110 MG/DL (70-104); POTASSIUM 3.7 MMOL/L (3.5-5.1); SODIUM 141 MMOL/L (135-145); TOTAL CARBON DIOXIDE 30.4 MMOL/L (24-32); eCRCL 61 ML/MIN; eGFR 63 ML/MIN
[2024-08-22 07:00] VITALS: BP 126/63; PULSE 75; RESP 11; TEMP 97.4; O2SAT 97
[2024-08-22 08:13] VITALS: PULSE 90; RESP 16; O2SAT 95
--- NOTE | 2024-08-22 08:45 | DISCHARGE SUMMARY ---
Discharge Summary Providers to CC CC: VITO RODRÍGUEZ MD ~ Discharge Summary Admission Diagnosis: colon cancer Hospital Course DATE OF ADMISSION: August 18, 2024 DATE OF DISCHARGE: August 22, 2024 Discharge Diagnosis\Comment: Colon cancer Operations\Procedures: Robotic assisted, laparoscopic extended right hemicolectomy Consultants: Vito Rodríguez MD [facility] Hospitalist service Complications: None Condition on DC: Stable New Medications: Oxycodone Hcl/Acetaminophen 5/325 MG* (Percocet 5/325 MG*) 5 Mg/325 Mg Tablet 1 TAB PO Q4H PRN for moderate or severe pain 4-10 for 5 Days, #30 TAB Continued Medications: Atorvastatin Calcium (Atorvastatin Calcium) 80 Mg Tablet 1 TAB PO DAILY Ferrous Sulfate (Ferrous Sulfate) 325 Mg (65 Mg Iron) Tablet 1 TAB PO DAILY Fluticasone Propionate (Flonase) 16 Gm [place].susp 2 SPRAYS BOTHNARES DAILY, GM Metoprolol Succinate (Metoprolol Succinate) 25 Mg Tab.sr.24h 1 TAB PO DAILY Omeprazole (Prilosec) 20 Mg Capsule.dr 40 MG PO DAILY, CAP TAKE 1 CAPSULE BY MOUTH DAILY. Tamsulosin Hcl* (Flomax*) 0.4 Mg Cap.sr.24h 0.4 MG PO DAILY Discharge Summary: Patient was admitted for routine postoperative care following a robotic assiste d, laparoscopic extended right hemicolectomy for biopsy positive colorectal cancer. His diet was slowly advanced throughout his hospital course and on postoperative day 4., he was tolerating a regular diet, passing flatus and had had a bowel movement. [place] catheter was left in place for three postoperative days due to difficulty in placement and recent TURP. He will follow up in the office one week from Saturday for staple removal. Pathology was still pending at the time of discharge. *Problems/Diagnosis: (1) Colon cancer Total Time Spent on D/C: Up to 30 Minutes Problem Qualifiers (1) Colon cancer: Qualified Codes: C18.2 - Malignant neoplasm of ascending colon VITO RODRÍGUEZ MD Aug 22, 2024 08:45
[2024-08-22] MEDS ORDERED: PER5325T PO (08:46)
--- NOTE | 2024-08-22 09:02 | RADIOLOGY REPORT ---
Date: 08/22/2024 08:06 AM Examination: DI ABDOMEN,SINGLE VIEW(KUB) History: abdominal distention Comparison: None TECHNIQUE: Frontal views of the abdomen was obtained. FINDINGS: There is minimal gaseous distention of the small bowel. There is gas within the colon. Surgical stapl es noted. No acute osseus abnormality. IMPRESSION: 1. Mild ileus type pattern
[2024-08-22 09:49] VITALS: RESP 16
--- NOTE | 2024-08-25 09:04 | PATHOLOGY REPORT ---
[facility] [address] [place] [address] SURGICAL PATHOLOGY REPORT CaseNumber: [id number] Surgeon:Vito Roa M.D. CLINICAL INFORMATION CLINICAL INFORMATION: Malignant neoplasm of colon. DIAGNOSIS DIAGNOSIS: COLON, RIGHT; RESECTION - INVASIVE COLONIC ADENOCARCINOMA, POORLY DIFFERENTIATED. - MULTIPLE FOCI OF INVASIVE CARCINOMA.- SEVENTEEN LYMPH NODES, NEGATIVE FOR CARCINOMA (0/17). - THE SURGICAL MARGINS ARE NEGATIVE. - SEE SYNOPTIC REPORT. Comment: MMR protein analysis by immunohistochemistry is ordered and will be reported in an addendum. MICROSCOPIC DESCRIPTION MICROSCOPIC DESCRIPTION: 21 H&E stained slides are examined. They show sections of colon involved by 4 adenomas with high-grade dysplasia. Invasive poorly differentiated adenocarcinoma can be seen arisi ng from 2 of the 4 adenomas (one located in the cecum, the other located in the ascending colon). In both cases, the invasive carcinoma extends through the muscularis propria into the pericolonic fat. P erineural invasion is present, but I do not see evidence of intravascular invasion. The cecal tumor d oes not show definitive evidence of invasion into the adherent small bowel. The radial and mucosal zamora rgical margins are negative for invasive carcinoma and high-grade dysplasia. 17 lymph nodes are sampl ed, and they are all negative for metastatic carcinoma. GROSS DESCRIPTION GROSS DESCRIPTION: Received in a container of formalin labeled with the patient's name, number, and " Right colectomy" is a 42 cm length of bowel which includes 12 cm of terminal ileum, the ileocecal usman ve, and 30 cm of colon. The serosa is purple-avila with tattoo isnai noted. There is a vermiform appendi x present which measures 5.5 cm long by 0.6 cm in diameter. Sectioning the appendix reveals a nondila alejandro lumen and no fecalith. Both ends of the bowel are closed by a row of surgical vale. The bowel is opened lengthwise to reveal a small amount of partially formed stool. Present in the cecum is a 3. 5 x 3.5 cm ulcerated neoplasm. Sectioning the neoplasm reveals it invading and destroying the muscula ris penetrating through to the fat. The tumor is present 7 cm from the closest radial resection sheyla n. The neoplasm apparently invades the adherent small bowel. There is a 1 cm polyp of the ileocecal v alve. Sectioning the polyp reveals submucosal lipoma. There are two additional polyps 2 and 4 cm dist al to the ileocecal valve. 6 cm distal to ileocecal valve, there is an ulcerated annular neoplasm whi ch measures 6.5 cm proximal to distal. Sectioning the neoplasm reveals it invading and destroying the muscularis. The neoplasm is present 2 cm from the closest radial resection margin. Careful dissectio n of the attached fat reveals 16 lymph candidates. Sections are submitted as follows: A1) Proximal mucosal resection margin A2) Distal mucosal resection margin A3) Radial resection margin cecal tumor A4) Radial resection margin tumor 6 cm distal to ileocecal valve A5) Appendix A6-A8) Cecal tumor A9) Polyp ileocecal valve A10) Polyp 2 cm distal to ileocecal valve A11) Polyp 4 cm distal to ileocecal valve A12-A15) Tumor 6 cm distal to ileocecal valve A17-A19) Bisected lymph node candidates, three per cassette A20-A21) Bisected lymph node candidates two per cassette SYNOPTIC REPORT SYNOPTIC TEXT: COLON AND RECTUM: Resection Specimen Procedure: Right hemicolectomy Tumor Tumor Site: Cecum; Ascending colon Histologic Type: Adenocarcinoma Histologic Grade: G3, poorly differentiated Tumor Size: 6.5 Centimeters (cm) Multiple Primary Sites: Present Tumor Extent: Invades through muscularis propria into the pericolonic or perirectal tissue Macroscopic Tumor Perforation: Not identified Lymphatic and / or Vascular Invasion: Not identified Perineural Invasion: Present Tumor Budding Score: Intermediate (5-9) Type of Polyp in which Invasive Carcinoma Arose: Tubular adenoma Treatment Effect: No known presurgical therapy Margins Margin Status for Invasive Carcinoma: All margins negative for invasive carcinoma Closest Margin(s) to Invasive Carcinoma: Radial (circumferential) - Ascending colon tumor Distance from Invasive Carcinoma to Closest Margin: 2 cm Margin Status for Non-Invasive Tumor: All margins negative for high-grade dysplasia / intramucosal carcinoma and low-grade dysplasia Regional Lymph Nodes Regional Lymph Node Status: All regional lymph nodes negative for tumor Number of Lymph Nodes Examined: 17 Tumor Deposits: Not identified pTNM Classification (AJCC 8th Edition) pT Category: pT3 T Suffix: (m) pN Category: pN0 CAP [facility] 2023 Q2 Release Electronically signed by: Guillermo Buchanan, 08/25/2024 8:34:00 AM
== END 2024-08-22 10:45 | disposition home or self-care (01) | DRG 329 ==
LOC: PAS IN 08:55 → PCU 3S 20:16
PROVIDERS: ADMIT Surgery; ATTEND Surgery
PROC: 8E0W4CZ Robotic Assisted Procedure of Trunk Region, Percutaneous Endoscopic Approach (ICD-10-PCS; 2024-08-18)
PROC: 0DTF4ZZ Resection of Right Large Intestine, Percutaneous Endoscopic Approach (ICD-10-PCS; principal; 2024-08-18 11:30)
DX: C18.2 Malignant neoplasm of ascending colon (principal); J96.01 Acute respiratory failure with hypoxia; E44.1 Mild protein-calorie malnutrition; I10 Essential (primary) hypertension; E11.9 Type 2 diabetes mellitus without complications; D50.9 Iron deficiency anemia, unspecified; Z68.28 Body mass index [BMI] 28.0-28.9, adult; Z79.84 Long term (current) use of oral hypoglycemic drugs; Z90.79 Acquired absence of other genital organ(s)
CPT/HCPCS: 36415; 36600; 71045; 74018; 80047; 80048; 80053; 82378; 82728; 82803; 82948; 83036; 83540; 83550; 85008; 85018; 85025; 87081; 94640; 94760; 97116; 97161; 97530; A4215; A4340; A4615; A4618; A6258; C1758; G0378; J0131; J0666; J0690; J1100; J1171; J1938; J2003; J2250; J2274; J2405; J2704; J2710; J3010; J3490; J7030; J7120